=== PATIENT | female | born 1955 | race Caucasian/White ===

== ENCOUNTER 2022-02-02 08:59 | Day surgery (SDC) | payer MEDICARE, OTHER ==
[~2022-02-02] VITALS: Ht 162.6 cm; Wt 98.3 kg
[~2022-02-02 08:59] MED LIST: ATOR40TA75 PO; BIOT1CAP2 PO; CALC500C16 PO; CETI10TA4 PO; FERR325T18 PO; FISH1000 PO; GABA-1171 PO; LISI20TA33 PO; NS 1,000 ML IV ONE; OMEP1CAP73 PO; QC F0.52 PO; ROPI0.5T3 PO; SYNT50TA PO; VENL75CA2 PO; VITMTA PO
[2022-02-02] MEDS ORDERED: propofoL 200 MG/20 ML VIAL As Ordered ONE (10:40)
[2022-02-02] MEDS ORDERED: LIDOCAINE 2% 100MG/5ML SDV (FOR ANES.) As Ordered ONE (10:40)
[2022-02-02 11:20] VITALS: BP 150/72
== END 2022-02-02 11:25 | disposition home or self-care (01) ==
LOC: M OPP 08:59
PROVIDERS: ATTEND Internal Medicine Gastroenterology
DX: Z12.11 Encounter for screening for malignant neoplasm of colon (principal); Z80.0 Family history of malignant neoplasm of digestive organs; K57.30 Diverticulosis of large intestine without perforation or abscess without bleeding; K64.0 First degree hemorrhoids; I10 Essential (primary) hypertension; E78.00 Pure hypercholesterolemia, unspecified; E11.9 Type 2 diabetes mellitus without complications; J45.909 Unspecified asthma, uncomplicated; Z87.891 Personal history of nicotine dependence; Z79.899 Other long term (current) drug therapy; Z79.02 Long term (current) use of antithrombotics/antiplatelets; Z88.0 Allergy status to penicillin; Z88.1 Allergy status to other antibiotic agents; Z88.6 Allergy status to analgesic agent; Z88.8 Allergy status to other drugs, medicaments and biological substances; Z91.040 Latex allergy status; Z91.048 Other nonmedicinal substance allergy status

== ENCOUNTER → 2025-01-16 | Outpatient (CLI) | payer MEDICARE, OTHER ==
[~2025-01-16] MED LIST changes: -NS 1,000 ML IV ONE; -ROPI0.5T3 PO; +ROPI0.5T33 PO
== END ==
LOC: M CARPUL 10:54
PROVIDERS: ATTEND Registered Nurse
DX: R07.9 Chest pain, unspecified (principal)